=== PATIENT | female | born 1940 | race Caucasian/White ===

== ENCOUNTER 2021-06-26 10:25 | Inpatient (IN) | payer MEDICARE, SELFPAY ==
[2021-06-26] VITALS (36 sets, daily range): BP systolic 87–112; BP diastolic 60–81; PULSE 64–80; RESP 13–32; TEMP 37.3; O2SAT 91–99; BMI 22.6
--- NOTE | 2021-06-26 10:37 | ECG_ITS ---
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 Measurements Intervals [place] Rate: 92 P: 64 PA: 172 QRS: -24 QRSD: 82 T: 225 QT: 420 QTc: 522 Interpretive Statements SINUS RHYTHM BORDERLINE LEFT AXIS DEVIATION [QRS AXIS < -20] MODERATE T-WAVE ABNORMALITY, CONSIDER LATERAL ISCHEMIA [-0.1+ mV T WAVE IN I/aVL/V5/V6] MODERATE T-WAVE ABNORMALITY, CONSIDER INFERIOR ISCHEMIA [-0.1+ mV T WAVE IN II/aVF] No previous ECG available for comparison Electronically Signed On 06-30-2021 0:22:12 CDT by Ailyn Andre M.D. [id number] f
--- NOTE | 2021-06-26 10:37 | XR_ITS ---
WS: [id number] XR chest 1V portable [id number] REASON FOR EXAM: Cough FINDINGS: Calcification in the aortic arch. No significant tortuosity or dilatation. The heart size is normal. Calcified granulomatous changes in both hemithoraces. No acute pulmonary parenchymal or pleural finding. Moderate changes of degenerative spondylosis in the lower thoracic spine and at the thoracolumbar radha ction. XR/XR chest 1V portable [id number] IMPRESSION: No acute abnormality.
--- NOTE | 2021-06-26 10:39 | W.ED.CHESTPA ---
Documented by User: LUIS Kaur 06/26/21 12:17 HPI - Chest Pain General: Chief Complaint: Chest Pain Stated Complaint: CP Time Seen by Provider: 06/26/21 10:39 Source: patient and family Mode of arrival: wheelchair Limitations: no limitations History of Present Illness: HPI narrative: Patient is a pleasant 80-year-old female who presents to ED today along with her daughter for complaints of an episode of chest pain that began yesterday evening while push mowing her yard. She states she began feeling pain substernally. She states she quit mowing and went inside to rest. Chest pain did slightly improve with rest. She tells me she was able to sleep although reportedly tossed and turned throughout the night. She states this morning chest pain continued so her daughter recommended she come to the ED for evaluation. Patient has no cardiac history. She does have a history of hypertension and is an every day smoker. MD complaint: chest pain Onset (ago): day(s) (yesterday) Timing of current episode: constant Prior episodes: No Onset: during exertion Pain location: substernal Pain radiation: back Severity: moderate Quality: tightness and heaviness Associated symptoms: Deny abdominal pain, diaphoresis, dyspnea, fever(s), nausea, palpitations, syncope or vomiting Treatment prior to arrival: none Risk Factors: Coronary artery disease risk factors: smoking history and hypertension Review of Systems Const: Denies: fever(s), chills, body aches, change in appetite, change in weight, night sweats or diaphoresis Card: Reports: chest pain; Denies: palpitations, irregular heart rhythm, edema, swelling of feet/ankles, lightheadedness, syncope, pre-syncope, dyspnea on exertion, orthopnea, leg pain with exertion or acrocyanosis Resp: Denies: dyspnea, productive cough, non-productive cough, pain on inspiration, hemoptysis or chest congestion GI: Denies: abdominal pain, nausea, vomiting or diarrhea Musc: Denies: neck pain or back pain Skin/Breast: Denies: rash Neuro: Reports: other (reports weakness); Denies: headache(s) Physical Exam Const: COMMON NORMALS: average body habitus, patient oriented x3, no limitations, healthy appearing, alert and well nourished GENERAL APPEARANCE: in distress (reporting chest pain) ORIENTATION/CONSCIOUSNESS: Yes awake, Yes oriented to person, Yes oriented to place and Yes oriented to time HENMT: COMMON NORMALS: normocephalic and atraumatic HEAD & SCALP: normocephalic and atraumatic Resp: COMMON NORMALS: normal respiratory effort and clear to auscultation bilaterally AUSCULTATION: clear to auscultation bilaterally Cardio: COMMON NORMALS: regular rate and regular rhythm RATE: regular rate RHYTHM: regular rhythm GI: COMMON NORMALS: Normal to inspection, nondistended, normoactive bowel sounds present, Soft to palpation, non-tender, No hepatosplenomegaly present and no masses PALPATION: Yes Soft to palpation and Yes No hepatosplenomegaly present Extremity: COMMON NORMALS: capillary refill normal, no clubbing, cyanosis or edema, no calf tenderness and no pedal edema Neuro: COMMON NORMALS: patient oriented x3 SENSORIUM/ORIENTATION: Yes alert, Yes oriented to person, Yes oriented to place and Yes oriented to time Skin: COMMON NORMALS: no rashes or lesions noted GENERAL SKIN EXAM: no rashes or lesions noted Course Consultations: Consultation #1: Dr. Andre-patient agrees with management here in ED; recommend admit and she will consult Vital Signs: Vital signs: Vital Signs Temperature 99.2 F 06/26/21 11:04 Pulse Rate 77 06/26/21 11:04 Respiratory Rate 16 06/26/21 11:04 Blood Pressure 104/62 06/26/21 11:04 Pulse Oximetry 97 06/26/21 11:16 MDM - Chest Pain MDM Narrative: Medical decision making narrative: Initial EKG shows inverted T waves to her inferior lateral leads. EKG was immediately reviewed with Dr. Chacon. No previous EKGs available for comparison. Patient's baseline troponin elevated at 306. She does have an elevated BNP at 7584. She clinically does not appear fluid overloaded. CXR is normal. Patient was started on aspirin, nitro, Lovenox, morphine, and Plavix. I consulted with cardiology Dr. Andre who agrees with management and recommend admit and she will consult. Dr. Chacon has also seen patient and spoke to hospitalist for admission. Lab Data: Labs: Lab Results 06/26/21 06/26/21 06/26/21 Range/Units 10:52 10:52 10:52 WBC 13.8 H (4.0-10.0) 10^3/ uL RBC 4.21 (4.1-5.3) 10^6/u L Hgb 11.4 L (11.5-15.3) g/dL Hct 36.0 L (37.0-47.0) % MCV 85.5 (81-99) fL MCH 27.1 L (28.0-34.0) pg MCHC 31.7 (30.0-36.0) g/dL RDW 16.0 H (12.1-15.1) % Plt Count 301 (130-400) 10^3/c mm MPV 10.9 H (7.4-10.4) fL Neut % (Auto) 83.3 % Lymph % (Auto) 10.1 % Frontier % (Auto) 5.7 % Eos % (Auto) 0.1 % Baso % (Auto) 0.3 % Neut # (Auto) 11.49 H (1.8-7.7) 10^3/u L Lymph # (Auto) 1.4 (0.8-4.8) 10^3/u L Frontier # (Auto) 0.8 (0.2-0.9) 10^3/u L Eos # (Auto) 0.0 (0.0-0.8) 10^3/u L Baso # (Auto) 0.0 (0.0-0.1) 10^3/u L Nucleated RBC % (a uto) 0 % Nucleated RBCs # 0.0 /100WBC PT 13.00 (12.1-14.9) SECO NDS INR 0.95 (0.8-1.2) APTT 32.3 (23.9-36.7) SECO NDS Sodium 131 L (136-145) mmol/L Potassium 4.4 (3.5-5.1) mmol/L Chloride 95 L (98-107) mmol/L Carbon Dioxide 23 (22-29) mmol/L Anion Gap 17.4 (5-19) BUN 8 (8-23) mg/dL Creatinine 0.6 (0.5-0.9) mg/dL GFR Calculation Not Reportable Glucose 130 H (65-115) mg/dL Calculated Osmolal ity 272 L (285-295) mOsm/k g Calcium 8.4 L (8.5-10.5) mg/dL Total Bilirubin 0.5 (0.15-1.2) mg/dL AST 39 H (0-32) U/L ALT 22 (0-33) U/L Alkaline Phosphata se 132 H (35-105) IU/L Troponin T Baselin e (0-10) ng/L NT-Pro-B Natriuret Pep 7584 H (0-450) pg/mL Total Protein 6.4 L (6.6-8.7) g/dL Albumin 3.8 (3.5-5.2) g/dL Globulin 2.6 (1.3-4.6) g/dL 06/26/21 Range/Units 10:52 WBC (4.0-10.0) 10^3/ uL RBC (4.1-5.3) 10^6/u L Hgb (11.5-15.3) g/dL Hct (37.0-47.0) % MCV (81-99) fL MCH (28.0-34.0) pg MCHC (30.0-36.0) g/dL RDW (12.1-15.1) % Plt Count (130-400) 10^3/c mm MPV (7.4-10.4) fL Neut % (Auto) % Lymph % (Auto) % Frontier % (Auto) % Eos % (Auto) % Baso % (Auto) % Neut # (Auto) (1.8-7.7) 10^3/u L Lymph # (Auto) (0.8-4.8) 10^3/u L Frontier # (Auto) (0.2-0.9) 10^3/u L Eos # (Auto) (0.0-0.8) 10^3/u L Baso # (Auto) (0.0-0.1) 10^3/u L Nucleated RBC % (a uto) % Nucleated RBCs # /100WBC PT (12.1-14.9) SECO NDS INR (0.8-1.2) APTT (23.9-36.7) SECO NDS Sodium (136-145) mmol/L Potassium (3.5-5.1) mmol/L Chloride (98-107) mmol/L Carbon Dioxide (22-29) mmol/L Anion Gap (5-19) BUN (8-23) mg/dL Creatinine (0.5-0.9) mg/dL GFR Calculation Glucose (65-115) mg/dL Calculated Osmolal ity (285-295) mOsm/k g Calcium (8.5-10.5) mg/dL Total Bilirubin (0.15-1.2) mg/dL AST (0-32) U/L ALT (0-33) U/L Alkaline Phosphata se (35-105) IU/L Troponin T Baselin e 306 H* (0-10) ng/L NT-Pro-B Natriuret Pep (0-450) pg/mL Total Protein (6.6-8.7) g/dL Albumin (3.5-5.2) g/dL Globulin (1.3-4.6) g/dL EKG Data^: EKG 1: EKG interpretation date: 06/26/21 EKG interpretation time: 10:34 Interpretation: Sinus rhythm Rate 92 T wave inversion in inferiolateral leads concerning for possible ischemia No STEMI No EKG available for comparison Reviewed along with Dr. Chacon Discharge Plan Discharge Patient Disposition: Admitted As Inpatient Clinical Impression: Non-ST elevated myocardial infarction (non-STEMI), Chest pain, Elevated troponin, Cigarette smoker Condition: Stable Coding Level of Care Code ED Inside Sales Advertising Executive for Chg Fwd Exam Detailed Documented by User: Joaquin Chacon MD 06/26/21 12:06 HPI - Chest Pain General: Chief Complaint: Chest Pain Stated Complaint: CP Time Seen by Provider: 06/26/21 10:39 Course ED course: I discussed at length with patient and family about findings. They are agreeable with mission to the hospital. Consultations: Consultation #1: Patient appears to be having a non-STEMI. Continue to be in chest pain has received morphine nitro aspirin Plavix and Lovenox. Dr. Sullivan cardiology will see patient as a consult. Patient be admitted to the hospitalist service Time: 12:05 Vital Signs: Vital signs: Vital Signs Temperature 99.2 F 06/26/21 11:04 Pulse Rate 77 06/26/21 11:04 Respiratory Rate 16 06/26/21 11:04 Blood Pressure 104/62 06/26/21 11:04 Pulse Oximetry 97 06/26/21 11:16 MDM - Chest Pain MDM Narrative: Medical decision making narrative: Patient appears to be having a non-STEMI. Continue to be in chest pain has received morphine nitro aspirin Plavix and Lovenox. Dr. Sullivan cardiology will see patient as a consult. Patient be admitted to the hospitalist service Lab Data: Labs: Lab Results 06/26/21 06/26/21 06/26/21 Range/Units 10:52 10:52 10:52 WBC 13.8 H (4.0-10.0) 10^3/ uL RBC 4.21 (4.1-5.3) 10^6/u L Hgb 11.4 L (11.5-15.3) g/dL Hct 36.0 L (37.0-47.0) % MCV 85.5 (81-99) fL MCH 27.1 L (28.0-34.0) pg MCHC 31.7 (30.0-36.0) g/dL RDW 16.0 H (12.1-15.1) % Plt Count 301 (130-400) 10^3/c mm MPV 10.9 H (7.4-10.4) fL Neut % (Auto) 83.3 % Lymph % (Auto) 10.1 % Frontier % (Auto) 5.7 % Eos % (Auto) 0.1 % Baso % (Auto) 0.3 % Neut # (Auto) 11.49 H (1.8-7.7) 10^3/u L Lymph # (Auto) 1.4 (0.8-4.8) 10^3/u L Frontier # (Auto) 0.8 (0.2-0.9) 10^3/u L Eos # (Auto) 0.0 (0.0-0.8) 10^3/u L Baso # (Auto) 0.0 (0.0-0.1) 10^3/u L Nucleated RBC % (a uto) 0 % Nucleated RBCs # 0.0 /100WBC PT 13.00 (12.1-14.9) SECO NDS INR 0.95 (0.8-1.2) APTT 32.3 (23.9-36.7) SECO NDS Sodium 131 L (136-145) mmol/L Potassium 4.4 (3.5-5.1) mmol/L Chloride 95 L (98-107) mmol/L Carbon Dioxide 23 (22-29) mmol/L Anion Gap 17.4 (5-19) BUN 8 (8-23) mg/dL Creatinine 0.6 (0.5-0.9) mg/dL GFR Calculation Not Reportable Glucose 130 H (65-115) mg/dL Calculated Osmolal ity 272 L (285-295) mOsm/k g Calcium 8.4 L (8.5-10.5) mg/dL Total Bilirubin 0.5 (0.15-1.2) mg/dL AST 39 H (0-32) U/L ALT 22 (0-33) U/L Alkaline Phosphata se 132 H (35-105) IU/L Troponin T Baselin e (0-10) ng/L NT-Pro-B Natriuret Pep 7584 H (0-450) pg/mL Total Protein 6.4 L (6.6-8.7) g/dL Albumin 3.8 (3.5-5.2) g/dL Globulin 2.6 (1.3-4.6) g/dL 06/26/21 Range/Units 10:52 WBC (4.0-10.0) 10^3/ uL RBC (4.1-5.3) 10^6/u L Hgb (11.5-15.3) g/dL Hct (37.0-47.0) % MCV (81-99) fL MCH (28.0-34.0) pg MCHC (30.0-36.0) g/dL RDW (12.1-15.1) % Plt Count (130-400) 10^3/c mm MPV (7.4-10.4) fL Neut % (Auto) % Lymph % (Auto) % Frontier % (Auto) % Eos % (Auto) % Baso % (Auto) % Neut # (Auto) (1.8-7.7) 10^3/u L Lymph # (Auto) (0.8-4.8) 10^3/u L Frontier # (Auto) (0.2-0.9) 10^3/u L Eos # (Auto) (0.0-0.8) 10^3/u L Baso # (Auto) (0.0-0.1) 10^3/u L Nucleated RBC % (a uto) % Nucleated RBCs # /100WBC PT (12.1-14.9) SECO NDS INR (0.8-1.2) APTT (23.9-36.7) SECO NDS Sodium (136-145) mmol/L Potassium (3.5-5.1) mmol/L Chloride (98-107) mmol/L Carbon Dioxide (22-29) mmol/L Anion Gap (5-19) BUN (8-23) mg/dL Creatinine (0.5-0.9) mg/dL GFR Calculation Glucose (65-115) mg/dL Calculated Osmolal ity (285-295) mOsm/k g Calcium (8.5-10.5) mg/dL Total Bilirubin (0.15-1.2) mg/dL AST (0-32) U/L ALT (0-33) U/L Alkaline Phosphata se (35-105) IU/L Troponin T Baselin e 306 H* (0-10) ng/L NT-Pro-B Natriuret Pep (0-450) pg/mL Total Protein (6.6-8.7) g/dL Albumin (3.5-5.2) g/dL Globulin (1.3-4.6) g/dL Discharge Plan Discharge Patient Disposition: Admitted As Inpatient Clinical Impression: Non-ST elevated myocardial infarction (non-STEMI), Chest pain, Elevated troponin, Cigarette smoker Condition: Stable Coding Level of Care Code ED Inside Sales Advertising Executive for Dori Fwd Exam Detailed
[2021-06-26 11:07] LABS: Basophils % 0.3 %; Eosinophils % 0.1 %; Hemoglobin 11.4 g/dL (11.5-15.3); Lymphocytes # 1.4 10^3/uL (0.8-4.8); Lymphocytes % 10.1 %; Mean Corpuscular HGB Conc 31.7 g/dL (30.0-36.0); Mean Corpuscular Hemoglobin 27.1 pg (28.0-34.0); Mean Corpuscular Volume 85.5 fL (81-99); Mean Platelet Volume 10.9 fL (7.4-10.4); Monocytes # 0.8 10^3/uL (0.2-0.9); Monocytes % 5.7 %; Neutrophils # 11.49 10^3/uL (1.8-7.7); Neutrophils % 83.3 %; Nucleated Red Blood Cells % 0 %; Platelet Count 301 10^3/cmm (130-400); Red Blood Count 4.21 10^6/uL (4.1-5.3); White Blood Count 13.8 10^3/uL (4.0-10.0)
[2021-06-26 11:12] LABS: INR 0.95 (0.8-1.2); Partial Thromboplastin Time 32.3 SECONDS (23.9-36.7)
[2021-06-26 11:20] LABS: Alanine Aminotransferase 22 U/L (0-33); Albumin Level 3.8 g/dL (3.5-5.2); Alkaline Phosphatase 132 IU/L (35-105); Anion Gap 17.4 (5-19); Aspartate Amino Transferase 39 U/L (0-32); Blood Urea Nitrogen 8 mg/dL (8-23); Calcium 8.4 mg/dL (8.5-10.5); Carbon Dioxide 23 mmol/L (22-29); Chloride 95 mmol/L (98-107); Globulin 2.6 g/dL (1.3-4.6); Glucose 130 mg/dL (65-115); Osmolality Calculated 272 mOsm/kg (285-295); Potassium 4.4 mmol/L (3.5-5.1); Sodium 131 mmol/L (136-145); Total Bilirubin 0.5 mg/dL (0.15-1.2); Total Protein 6.4 g/dL (6.6-8.7)
[2021-06-26 11:28] LABS: Troponin(5th) Baseline 306 ng/L (0-10)
[2021-06-26] MEDS: clopidogrel 300 mg Tablet PO (11:52)
[2021-06-26] MEDS: aspirin 81 mg Chew Tablet 324 MG PO (11:53)
[2021-06-26] MEDS: nitroglycerin 1 gm/inch oint Pkt 1 INCH TOPICAL (11:54)
[2021-06-26 11:57] LABS: NT Pro B Type Natriuretic Pept 7584 pg/mL (0-450)
[2021-06-26] MEDS: morphine 4 mg/mL SDV 1 mL 2 MG IVP (12:00)
[2021-06-26 12:31] LABS: Add Urine Microscopic? NO; Charge for UA Resulting for Rev
--- NOTE | 2021-06-26 12:37 | ECG_ITS ---
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 Measurements Intervals [place] Rate: 79 P: 47 SD: 173 QRS: -9 QRSD: 81 T: 222 QT: 472 QTc: 543 Interpretive Statements SINUS RHYTHM WITH FREQUENT SUPRAVENTRICULAR PREMATURE COMPLEXES POSSIBLE RIGHT VENTRICULAR CONDUCTION DELAY [RSR (QR) IN V1/V2] MARKED T-WAVE ABNORMALITY, CONSIDER LATERAL ISCHEMIA [-0.5+ mV T WAVE IN I/aVL/V5/V6] MODERATE T-WAVE ABNORMALITY, CONSIDER INFERIOR ISCHEMIA [-0.1+ mV T WAVE IN II/aVF] Compared to ECG 06/26/2021 10:34:33 No significant changes Electronically Signed On 06-26-2021 14:47:22 CDT by Alva Maldonado M.D. [id number] f
[2021-06-26 12:41] LABS: Bilirubin Urine Neg (Negative); Blood Urine Neg (Negative); Glucose Urine UA Norm (Normal); Ketones Urine Negative (Negative); Leukocyte Esterase Urine Negative (Negative); Nitrate Urine Negative (Negative); Protein Urine Neg (Negative); Specific Gravity, Urine 1.005 (1.005-1.030); Urine Appearance Clear (CLEAR); Urine Color Yellow (Yellow); Urobilinogen Urine Norm (Negative); pH Urine 6.5 (5-7)
[2021-06-26] MEDS: enoxaparin 60 mg/0.6 mL Syringe 50 MG SUBCUT (13:07)
[2021-06-26 13:38] LABS: Troponin 5 2HR 268.2 ng/L (0-10); Troponin 5 2HR Delta -37.8 ABS# (0-10)
--- NOTE | 2021-06-26 13:41 | PC.NURSE ---
PATIENT STATES PAIN IS RADIATING MORE DOWN HER LEFT ARM. RATES ARM PAIN 8/10. PATIENT'S CHEST PAIN HURTS WHEN SHE TAKES DEEP BREATHS OR SITS IN HIGH FOWLERS. PATIENT RATES PAIN 8/10 DURING THOSE MOVEMENTS AND A 5/10 AT REST.
--- NOTE | 2021-06-26 13:45 | USCV_ITS ---
Nidia Jin Age: 80 Gender: F : 1940 Exam Date: 06/26/2021 14:34 Ordering Phys: Ailyn Andre MD ([email or web address]) Technologist: Christian Pierre Exam [place] [facility] [place] [facility] [place]ication: NSTEMI BP: 113 / 79 HR: 81 Rhythm: Sinus Technical Quality: Adequate MEASUREMENTS (Male / Female) Normal Values 2D ECHO LV Diastolic Diameter PLAX 3.8 cm 4.2 - 5.9 / 3.9 - 5.3 cm LV Systolic Diameter PLAX 3.2 cm IVS Diastolic Thickness 0.8 cm 0.6 - 1.0 / 0.6 - 0.9 cm IVS Systolic Thickness 1.1 cm LVPW Diastolic Thickness 0.9 cm 0.6 - 1.0 / 0.6 - 0.9 cm LVPW Systolic Thickness 0.9 cm LVOT Diameter 2.0 cm LV Ejection Fraction 2D Teich 32.1 % LV Ejection Fraction MOD 2C 32.9 % LV Ejection Fraction 2C AL 31.8 % LA Diameter 2.9 cm LA Width 3.6 cm LA Height 3.8 cm RA Width 3.6 cm RA Height 4.4 cm M-MODE MV E Point Septal Separation 1.0 cm DOPPLER AV Peak Velocity 134.0 cm/s LVOT Peak Velocity 76.0 cm/s AV Area Cont Eq vti 2.0 cm squared AV Area Cont Eq pk 1.9 cm squared MV Area PHT 5.0 cm squared Mitral E to A Ratio 0.8 MV E' Velocity 36.5 cm/s Mitral E to MV E' Ratio 8.9 Mitral E to LV E' Lateral Ratio 10.4 Mitral E to LV E' Septal Ratio 7.7 TR Peak Velocity 275.3 cm/s TR Peak Gradient 30.3 mmHg TV Peak E Velocity 102.0 cm/s Right Atrial Pressure 3.0 mmHg Pulmonary Artery Systolic Pressu 33.3 mmHg PV Peak Velocity 79.0 cm/s FINDINGS Left Ventricle Normal left ventricular cavity size. Moderately decreased left ventricular systolic function. Left ventricular ejection fraction is estimated at 30-35%. There is severe hypokinesis of mid inferoseptal, mid to apical anteroseptal, mid to apical anterior, mid to apical anterolateral, mid inferolateral and all apical guo. Normal diastolic function. Right Ventricle Normal right ventricular size and systolic function. Right ventricular systolic pressure 35 mmHg. Right Atrium Normal right atrial size. Right atrial pressure estimated at 3 mmHg. Left Atrium Left atrium not well visualized. Probably normal left atrial size. Mitral Valve Mildly thickened mitral valve. No mitral valve stenosis. Trace mitral valve regurgitation. Aortic Valve Aortic valve not well visualized. No aortic valve stenosis. Trace aortic valve regurgitation. Tricuspid Valve Tricuspid valve not well visualized. Mild to moderate tricuspid valve regurgitation. Pulmonic Valve Pulmonic valve not well visualized. Trace pulmonary valve regurgitation. Pericardium No pericardial effusion. Aorta Normal size aortic root and proximal ascending aorta. CONCLUSIONS 1. Normal left ventricular cavity size. Moderately decreased left ventricular systolic function. Left ventricular ejection fraction is estimated at 30-35 %. There is severe hypokinesis of mid inferoseptal, mid to apical anteroseptal, mid to apical anterior, mid to apical anterolateral, mid inferolateral and all apical guo. 2. Normal right ventricular size and systolic function. 3. Pulmonary artery pressure estimated at 35 mmHg. 4. Mild to moderate tricuspid valve regurgitation. 5. These findings may represent multivessel coronary artery disease or Takotsubo cardiomyopathy if coronary artery disease is ruled out. 6. No prior similar studies to compare. Ailyn Andre MD (Electronically Signed) Final Date: 26 June 2021 15:46 Amended: 26 June 2021 20:33 C
[2021-06-26] MEDS: sodium chloride 0.9% 500 ML 999 ML IV (14:13)
[2021-06-26] MEDS: nitroglycerin 0.4 mg sublingual Tablet SUBLINGUAL (14:41)
--- NOTE | 2021-06-26 15:05 | P.CONIM_ITS ---
Providers/Reason For Consult Consulting Physician/Specialty*: Dr. Andre Reason for Consult*: NSTEMI History of Present Illness History of Present Illness Nidia Jin is a 80 year old female with PMHx of HTN, family h/o CAD and chronic active smoker (40 PKY at least) presented with chest pain. Yesterday, while pushing a push mower he felt tired and overnight had somne mild chest discomfort. This morning he developed pressure like chest pain in left upper chest with radiation to upper shoulder and back with some pleuritic component to the pain. She also metions that bending forward makes her pain worse somewhat. troponin >300 and EKG on arrival showed sinus rhythm with occasional PVC. Deep T wave inversion in inferolateral leads. I have been asked to assist in further management. She got vaccinated with J&J vaccine on 05/05/2021 and denies any sick contacts including COVID-19. No URI or UTI like symptoms. No similar symptoms in past. Review of Systems Const: Denies: fever(s), chills, body aches, change in appetite, change in weight, night sweats or diaphoresis Eyes: Denies: change in vision Card: Reports: chest pain; Denies: palpitations, irregular heart rhythm, edema, swelling of feet/ankles, lightheadedness, syncope, pre-syncope, dyspnea on exertion, orthopnea, leg pain with exertion or acrocyanosis Resp: Denies: dyspnea, productive cough, non-productive cough, pain on inspiration, hemoptysis or chest congestion GI: Denies: abdominal pain, nausea, vomiting, diarrhea, hematochezia or melena : Denies: hematuria Musc: Denies: neck pain or back pain Skin/Breast: Denies: rash Neuro: Reports: other (reports weakness); Denies: headache(s) Psych: Denies: anxiety or depression Joni/Lymph: Denies: petechiae or purpura Meds/Allergies Home Medications and Allergies Home Medications Medication Instructions Recorded Confirmed Last Taken Type aspirin [Aspir-81] 81 mg PO BEDTIME 06/26/21 06/26/21 06/25/21 History atorvastatin 10 mg PO QAM 06/26/21 06/26/21 06/26/21 08:30 History lisinopril 10 mg PO QAM 06/26/21 06/26/21 06/26/21 08:30 History vit C,L-My-xxbfw-lutein-zeaxan 2 cap PO BEDTIME 06/26/21 06/26/21 06/25/21 History [PreserVision AREDS-2] Allergies Allergy/AdvReac Type Severity Reaction Status Date / Time No Known Allergies Allergy Verified 06/26/21 11:17 PFSH Acute PFSH: Medical History (Updated 06/26/21 @ 15:51 by Ailyn Andre MD) Family history of ischemic heart disease and other diseases of the circulatory system HTN (hypertension) Social History (Updated 06/26/21 @ 15:50 by Ailyn Andre MD) Smoking and tobacco status: current every day smoker cigarettes Packs smoked per day: 1 Years cigarettes smoked: 40 Vitals/I&O/Wt Last Vital Signs Temp 99.2 F 06/26/21 11:04 Pulse 80 06/26/21 15:00 Resp 32 H 06/26/21 15:00 BP 109/75 06/26/21 15:00 Pulse Ox 97 06/26/21 15:00 Weight last 48 hrs Weight 120 lb Physical Exam Narrative: EXAM NARRATIVE: Gen: laying in bed in painful distress HEENT/Neck: No JVD, PEERL RS: CTAB/L, prolonged expiration. No wheezing or rales. CVS: S1, S2 regular, No murmur, rub or gallop [employer]AT[employer] DRIVER: AAOx3, No FND Ext: No edema, cyanosis or clubbing. Skin: No rash or open wounds A&P Assessment and plan (1) Non-ST elevated myocardial infarction (non-STEMI): LVEF=35% with mid to apical wall motion abnormalities in multivessel territory. Diffrentials being multivessel CAD vs takotsubo cardiomyopathy -BP soft and ongoing chest pain. -Plan for cath with Dr. Cordon later this afternoon. -received ASA 324 mg, plavix 300 mg POx 1 and lovenox. -add another 300 mg of plavix. Risks and benefits were discussed with the patients. Alternate management options were discussed with the patient as well. Possible complications were reviewed with the patient and her daughter as well. Status: Acute (2) HTN (hypertension): Status: Acute Qualifiers: Hypertension type: essential hypertension Qualified Code(s): I10 - Essential (primary) hypertension (3) Family history of ischemic heart disease and other diseases of the circulatory system: Status: Acute (4) Cigarette smoker: Status: Acute Additional A&P Information Leucocytosis Abnormal liver enzymes Thank you for allowing me to participate in patient's care. Please feel free to call with questions or concerns. Consult Attestations Medical Necessity Statement: She will probably need more than 2 midnight stay in the hospital for NSTEMI Time Spent in Patient Care: Greater than 35 minutes (>than 50% of time spent in counselling and/or direct pt care on unit) . Critical Care Time: The high probability of a clinically significant, sudden or life threatening deterioration of the patient's [cardiovascular] system(s) required my full and direct attention, intervention and personal management. The critical care time is as shown. This time is in addition to time spent performing any reported procedures but includes the following: [x] Data and vital sign review and interpretation [x] Patient assessment, examination and intervention [x] Documentation [x] Medication orders and management Critical Care Time (min): 45 Coding Level of Care Code Acute Information Systems Project Manager for Dori Enriquez Diagnoses Non-ST elevated myocardial infarction (non-STEMI) I21.4 HTN (hypertension) I10 Hypertension type: essential hypertension Family history of ischemic heart disease and other diseases of the circulatory system Z82.49 Cigarette smoker F17.210
--- NOTE | 2021-06-26 15:13 | XACV_ITS ---
Ht: 155 cm Wt: 54 kg BSA: 1.54 m2 Gender: Female : 1940 Any Known Allergies: No known allergies Exam Priority: Routine Procedure(s): Procedure Description: Diagnostic procedure Procedure Description: Left Heart Catheterization Procedure Description: Left ventriculography Procedure Description: Coronary Angiography Diagnostic Cath Status: Urgent Diagnostic Findings * Left Main has no disease. * Circumflex has no disease. * Proximal Left Anterior Descending to Mid Left Anterior Descending: moderate 50% stenosis, SAKSHI: 3 flow. * Mid Right Coronary Artery: luminal irregularities 20% stenosis, SAKSHI: 3 flow. * 1st Diagonal: mild 40% stenosis, SAKSHI: 3 flow. * Coronary angiography shows right dominance. Conclusions 1. There is moderate coronary artery disease with two vessel disease. 2. The apex, mid posterior, mid septum, anterolateral, mid inferior guo are hypokinetic. 3. All other visualized guo normal. 4. Moderate left ventricular systolic dysfunction. Ejection fraction of 35%. Recommendations * Continue current medical management and risk factor modification. Diagnostic RX Recommendation: medical therapy and/or counseling LV EDP: 8 mmHg Ventriculography Ejection Fraction: 35.0 % Left Ventriculography Findings: * Severely depressed LV function 35%. Pressures Phase:Rest AO : 134 / 57 ( 57 ) @ 4:07:00 PM 47 / 34 ( 27 ) @ 4:10:00 PM LV : 108 / -7 / 8 @ 4:06:00 PM 285 / 46 / 273 @ 4:16:00 PM 103 / -1 / 13 @ 4:17:00 PM 107 / 1 / 15 @ 4:18:00 PM Clinical Evaluation EBL: 5mL-10mL Procedural Details Procedure Consent Obtained. Pre-Procedure Time Out. Identified patient by full name and date of as verbalized by the patient/guarantor. Does the consent match the physician's order: Yes. Accurate & Complete Informed Consent: Yes. Inpatient/Outpatient History & Physical on Chart: Yes. If H&P is completed, is and addenduem needed: N/A; If yes, is the addendum complete: N/A. Visualize and Verify Site with Patient/Guarantor: N/A. Relevant Radiology Images available: Yes. Pre-op teaching completed and patient verbalized understanding. The risks, benefits, and alternatives of sedation and/or procedure were discussed by physician. The patient agrees to continue. Procedure started. Correct patient, site and procedure confirmed by cath team. Current diagnosis: NSTEMI. PERRLA. Strong, equal hand diesel power mechanic bilaterally. Lungs clear x 5 lobes. IV Fluids: 0.9% NaCl at KVO. 0 mL infused prior to vp lab. Oxygen started at 2liters/min via nasal canula. right groin was prepped with chloroprep then draped in the usual sterile fashion. right radial was prepped with chloroprep then draped in the usual sterile fashion. Baseline sample Acquired. HR: 84 BPM. Physician notified. Equipment: 6F - Radial. Cardiac Cath Pack. ACIST Manifold Kit Model BT 2000. Heparinized Saline (2 units/mL), 1000 mL bag. Physician arrived. Inventory is [employer] XT .[address] Guidewire. Physician scrubbed in. Immediate Pre-Procedure Time Out. Correct Patient: Yes; Correct Procedure: Yes; Correct Site: Yes; Correct Patient Position: Yes; Correct Supplies: Yes; Dried Flammable Prep: Yes; Blood Products Available: No;. Lidocaine 1% infiltrated to the right radial. Arterial access obtained. A 5 welsh TIG catheter in over wire. EDP Sample taken: LV 108/-8,8; HR: 82 BPM; SpO2: 93%. Multiple views taken of left coronary artery. Catheter redirected to the RCA. Multiple views taken of right coronary artery. Catheter out. A 5 welsh Angled Pig catheter in over wire. EDP Sample taken: LV 285/46,273; HR: 81 BPM; SpO2: 92%. EDP Sample taken: LV 103/-2,13; HR: 80 BPM; SpO2: Off%. LV gram performed in GORDON @ 10 mL/second for a total of 30 mL. EDP Sample taken: LV 107/1,15; HR: 84 BPM; SpO2: 91%. Pullback taken: LV Off; AO Off; Mean: , Peak to Peak: , SEP: ; HR: 84 BPM; SpO2: 91%. Catheter out. A TR Band was successful obtaining hemostatsis at the Right Radial artery insertion site. TR band placed. Hemostasis obtained. Post Procedure: Pulses reassessed and unchanged. PERRLA. Strong, equal hand diesel power mechanic bilaterally. No VTE prophylaxis required. Medication's Wasted: Heparin = 1000 units. Medication's Wasted: Lidocaine 1% = 18 mL. Medication's Wasted: Nitro = 49.8 mg. Total IV fluids: 50.8 mL. Fluoro: 4:30. Contrast type used: Visipaque 320 mgI/mL, 500 mL bottle. [id number]. Post-op diagnosis: tokatsubo. Complications: none. Estimated blood loss: 5mL-10mL. Procedure completed. Patient transferred by wheelchair to 1st floor. [facility] Clinical Fraility Score: 3: Managing Well. Ict Security Specialist Indications: ACS <= 24 hours. Chest Pain Symptom Assessment: Typical Angina Symptoms. Cardiovascular Instability: No. Access Site Site: Right Radial artery Sheath Size: 5 Fr Hemostasis Method: TR Band Hemostasis Success: Successful Procedure Medications Start: 4:50 PM Stop: 4:50 PM Medication: Fentanyl Amount: 50 mcg Route: I.V. Start: 4:51 PM Stop: 4:51 PM Medication: Versed Amount: 1 mg Route: I.V. Start: 4:51 PM Stop: 4:51 PM Medication: Fentanyl Amount: 50 mcg Route: I.V. Start: 4:55 PM Stop: 4:55 PM Medication: Versed Amount: 1 mg Route: I.V. Start: 5:04 PM Stop: 5:04 PM Medication: Nitrogylcerin Amount: 200 mcg Route: I.A. I, the attending physician, have reviewed and verified all procedure medications. Yes, all medications given per verbal order History/Risk Factors Hypertension: Yes Tobacco Use: Current/Recent(w/in 1 year) Report Signatures Finalized by Jw Cordon MD on 07/10/2021 07:50 PM
[2021-06-26] MEDS: fentaNYL 50 mcg/mL INJ 2mL IVP (15:16)
[2021-06-26 15:38] LABS: SARS Covid-2 Antigen Negative (Negative)
--- NOTE | 2021-06-26 16:37 | ECG_ITS ---
[facility] ED Test Date: 2021-06-26 Pat Name: Nidia Jin Department: Room: Gender: Female Technology Infusion Specialist: : 1940 Requested By: Joaquin Chacon Order Number: [id number] Sheila MD: Ailyn Andre M.D. Measurements Intervals [place] Rate: 80 P: 65 AL: 168 QRS: -2 QRSD: 90 T: 230 QT: 484 QTc: 561 Interpretive Statements SINUS RHYTHM WITH OCCASIONAL VENTRICULAR PREMATURE COMPLEXES POSSIBLE RIGHT VENTRICULAR CONDUCTION DELAY [RSR (QR) IN V1/V2] ST DEVIATION AND MARKED T-WAVE ABNORMALITY, CONSIDER LATERAL ISCHEMIA [-0.5+ mV T WAVE IN I/aVL/V5/V6] ST DEVIATION AND MODERATE T-WAVE ABNORMALITY, CONSIDER INFERIOR ISCHEMIA [-0.1+ mV T WAVE IN II/aVF] Compared to ECG 06/26/2021 13:25:58 Ventricular premature complex(es) now present T-wave abnormality still present Possible ischemia still present Electronically Signed On 06-30-2021 0:40:29 CDT by Ailyn Andre M.D. [id number]
--- NOTE | 2021-06-26 16:55 | W.PM.OPSUD ---
Surgery/Procedure H&P Update DATE OF PROCEDURE: June 26, 2021 DATE H&P PERFORMED: 06/26/21 H&P UPDATE INFORMATION: I have reviewed H&P completed within last 30 days, I have examined patient prior to procedure and No changes to prior documentation PREOP DIAGNOSIS: Non-ST elevation GA PATIENT REASSESSED PRIOR TO SEDATION, WITH NO CHANGE NOTED: Yes PHYSICAL EXAM: alert, oriented x 3, clear to auscultation bilaterally and regular rate & rhythm AIRWAY EVAL/ANESTHESIA PLAN: ASA II, Risks, benefits & alternatives of sedation and/or procedure discussed and Patient agrees to continue as planned
--- NOTE | 2021-06-26 18:42 | PM.HP ---
Providers/Chief Complaint Admitting Physician: Ailyn Andre MD Chief Complaint: CP History of Present Illness Nidia Jin is a 80 year old female who has multiple risk factors for coronary disease such as family history, active smoker, hypertension who presented with chief complaint of chest pain. Patient symptoms started yesterday when she was doing some work in his backyard was pushing lawnmower. This morning her chest pain got worse which she is describing as pressure-like sensation radiating towards her shoulder associated with worsening on bending forward. This prompted her visit to the ER. Diagnosis in the ER revealed NSTEMI she was started on ACS protocol considering her history cardiology was consulted who recommended angiogram. Patient was seen after her cardiac cath, cardiac cath findings consistent with Takotsubo, EF 35%, she received dye, postoperatively she developed nausea and threw up multiple times she got Zofran, before her nausea she received fentanyl, in case of worsening shortness of breath we will keep an eye if she develops firm edema which we see sometimes with iodine ventriculography can be given Lasix if needed overnight Review of Systems Const: Denies: fever(s) Eyes: Denies: change in vision ENMT: Denies: throat pain Card: Reports: chest pain and dyspnea on exertion Resp: Reports: dyspnea GI: Denies: abdominal pain : Denies: flank pain Musc: Denies: neck pain Skin/Breast: Denies: rash Neuro: Denies: headache(s) Psych: Denies: anxiety Endo: Denies: polyuria Joni/Lymph: Denies: easy bruising All/Imm: Denies: urticaria Medications/Allergies Home Medications Medication Instructions Recorded Confirmed Last Taken Type aspirin [Aspir-81] 81 mg PO BEDTIME 06/26/21 06/26/21 06/25/21 History atorvastatin 10 mg PO QAM 06/26/21 06/26/21 06/26/21 08:30 History lisinopril 10 mg PO QAM 06/26/21 06/26/21 06/26/21 08:30 History vit C,D-Gi-xysdp-lutein-zeaxan 2 cap PO BEDTIME 06/26/21 06/26/21 06/25/21 History [PreserVision AREDS-2] Allergies Allergy/AdvReac Type Severity Reaction Status Date / Time No Known Allergies Allergy Verified 06/26/21 11:17 PFSH Acute PFSH: Medical History Family history of ischemic heart disease and other diseases of the circulatory system HTN (hypertension) Surgical History (Updated 06/26/21 @ 19:19 by Jw Funk MD) No history of previous surgery Family History (Updated 06/26/21 @ 19:20 by Jw Funk MD) Brother CAD (coronary artery disease) In his 60s Social History Smoking and tobacco status: current every day smoker cigarettes Packs smoked per day: 1 Years cigarettes smoked: 40 Vitals/I&O/Wt Last Vital Signs Temp 99.2 F 06/26/21 11:04 Pulse 71 06/26/21 18:15 Resp 18 06/26/21 18:05 BP 102/65 06/26/21 18:15 Pulse Ox 99 06/26/21 18:15 Weight last 48 hrs Weight 54.431 kg Physical Exam Narrative: EXAM NARRATIVE: elderly female who appears stated age Laying in bed in distress No JVD or signs of congestive heart failure S1, S2 Bilateral lower extremity without any edema Bilateral breath sounds without audible stridor or wheezing Awake alert into x3 no focal deficit Appropriate mood and affect No signs of cellulitis or joint swelling Data : 06/26/21 10:52 06/26/21 10:52 A&P Assessment and plan (1) Non-ST elevated myocardial infarction (non-STEMI): Status: Acute (2) HTN (hypertension): Status: Acute Qualifiers: Hypertension type: essential hypertension Qualified Code(s): I10 - Essential (primary) hypertension (3) Family history of ischemic heart disease and other diseases of the circulatory system: Status: Acute (4) Cigarette smoker: Status: Acute Additional A&P Information Unstable angina/NSTEMI Plan for angiogram today ACS was started in the ER Appreciate cardiology recommendations, EF 30% with severe hypokinesia multivessel territory left ventricular systolic function. Takotsubo cardiomyopathy History of essential hypertension: Currently normotensive Active smoker: Counseled on smoking cessation Full code N.p.o. for angiogram Advance diet after procedure DVT prophylaxis: Lovenox after procedure Attestations Medical Necessity Statement*: Anticipating stay in the hospital cross more than 2 midnights Time Spent in Patient Care: 16 - 35 minutes Coding Level of Care Code Acute Wood Hacker for Chg Fwd Diagnoses Non-ST elevated myocardial infarction (non-STEMI) I21.4 HTN (hypertension) I10 Hypertension type: essential hypertension Family history of ischemic heart disease and other diseases of the circulatory system Z82.49 Cigarette smoker F17.210
[2021-06-26] MEDS: fentaNYL 50 mcg/mL INJ 2mL 25 MCG IVP (18:45)
[2021-06-26] MEDS: ondansetron 2 mg/ML SDV 2 mL 4 MG IVP (19:13)
--- NOTE | 2021-06-26 19:21 | PC.NURSE ---
Patient received from catheter builder patient reporting 6/10 chest pain with inspiration lungs are clear and diminished. Call placed to Dr humphrey for further orders; instructed to call Thai for further orders however give 2 mg morphine IVP Q4h and place nitro 1/2 q6h. Patient pressures however low was able to contact Thai and received orders not to place nitro paste due to pressures; hodl on morphine and give Fentanyl 25mcg IVP Q6H for chest pain Administered Fentanyl and patient soon became nauseous and started vomiting Dr Funk at bedside at this time verbal instructions received to give 4 mg IVP Zofran now and obtain EKG Zofran administered Patient assisted to BSC with much nausea with increased SOB and pain returning in chest upon inspiration DR humphrey at bedside with Dr Funk with verbal instructions to give Toradol 15mg IVP x1 Patient assisted back to bed reports feeling very hot and nauseous still. Bedside report given to JOVANA DOMINGUEZ who will continue cares
[2021-06-26] MEDS: ketorolac 30 mg/mL INJ 15 MG IVP (19:22)
--- NOTE | 2021-06-26 19:27 | PC.NURSE ---
Received bedside report from NAGELICA Deal. Patient c/o nausea with vomiting. Dr Funk and Dr Cordon in to see patient. Patient c/o increased chest on deep inspiration. Received verbal order from Dr Funk and Bravo for Toradol 15mg IVP one time now which has been given along with ordered Zofran. Dr Andre in to see patient at this time. Patient report mild relief of nausea. Will hold off on food for now until nausea resolves.
[2021-06-26] MEDS: LORazepam 2 mg/mL INJ 1 mL 0.5 MG IVP (21:05)
[2021-06-26] MEDS: aspirin 81 mg EC Tablet PO (21:05)
[2021-06-26] MEDS: enoxaparin 60 mg/0.6 mL Syringe SUBCUT (21:17)
--- NOTE | 2021-06-26 21:23 | PC.NURSE ---
Initiated TR band removal at 1999 removing 2ml of air every 15-20min. No s/s of bleeding or hematoma formation observed. Cover site with 2x2 and coban. Instructed patient on site care and restrictions. Patient verbalized understanding.
[2021-06-26] MEDS: ipratropium-albuterol 3 mL Neb INHALATION (22:14)
[2021-06-27] VITALS (12 sets, daily range): BP systolic 102–119; BP diastolic 69–83; PULSE 75–82; RESP 16–20; TEMP 36.3–37.1; O2SAT 92–100
[2021-06-27 02:35] LABS: Basophils % 0.2 %; Hematocrit 32.8 % (37.0-47.0); Hemoglobin 10.4 g/dL (11.5-15.3); Lymphocytes # 1.6 10^3/uL (0.8-4.8); Lymphocytes % 12.2 %; Mean Corpuscular HGB Conc 31.7 g/dL (30.0-36.0); Mean Corpuscular Hemoglobin 27.2 pg (28.0-34.0); Mean Corpuscular Volume 85.9 fL (81-99); Mean Platelet Volume 11.7 fL (7.4-10.4); Monocytes # 1.1 10^3/uL (0.2-0.9); Monocytes % 8.7 %; Neutrophils # 9.95 10^3/uL (1.8-7.7); Neutrophils % 78.5 %; Nucleated Red Blood Cells % 0 %; Platelet Count 225 10^3/cmm (130-400); Red Blood Count 3.82 10^6/uL (4.1-5.3); White Blood Count 12.7 10^3/uL (4.0-10.0)
[2021-06-27 02:42] LABS: Anion Gap 11.5 (5-19); Blood Urea Nitrogen 8 mg/dL (8-23); Calcium 7.6 mg/dL (8.5-10.5); Carbon Dioxide 24 mmol/L (22-29); Chloride 97 mmol/L (98-107); Glucose 116 mg/dL (65-115); Osmolality Calculated 265 mOsm/kg (285-295); Potassium 4.5 mmol/L (3.5-5.1); Sodium 128 mmol/L (136-145)
[2021-06-27] MEDS: lisinopril 10 mg Tablet PO (05:40)
[2021-06-27] MEDS: atorvastatin 40 mg Tablet 80 MG PO (05:40)
[2021-06-27] MEDS: metoprolol succinate ER (24 HR) 25 mg Tablet 12.5 MG PO (10:12)
[2021-06-27] MEDS: clopidogrel 75 mg Tablet PO (10:12)
--- NOTE | 2021-06-27 10:13 | PM.PN ---
Subjective Subjective: Interval history: Underwent left heart cath via right radial. No obstructive CAD Medications: Reviewed: Yes Medication Review Details: Current Medications Acetaminophen (Acetaminophen 500 Mg Tablet) 500 mg PO Q4H PRN PRN Reason: fever Al Hydrox/Mg Hydrox/Simethicone (Uqps-Ulh-Tbsytgjuc-Doe 30 Ml Udc) 30 ml PO Q15M PRN PRN Reason: INDIGESTION Albuterol/Ipratropium (Ipratropium-Albuterol 3 Ml Neb) 3 ml INHALATION Q6H PRN PRN Reason: SHORTNESS OF BREATH Last Admin: 06/26/21 22:14 Dose: 3 ml Documented by: Aspirin (Aspirin 81 Mg Ec Tablet) 81 mg PO BEDTIME [facility] Last Admin: 06/26/21 21:05 Dose: 81 mg Documented by: Atorvastatin Calcium (Atorvastatin 40 Mg Tablet) 80 mg PO QAM [facility] Last Admin: 06/27/21 05:40 Dose: 80 mg Documented by: Atropine Sulfate (Atropine 1 Mg/Ml Sdv 1 Ml) 0.5 mg IVP PRN PRN PRN Reason: Symptomatic bradycardia Clopidogrel Bisulfate (Clopidogrel 75 Mg Tablet) 75 mg PO DAILY [facility] Last Admin: 06/27/21 10:12 Dose: 75 mg Documented by: Enoxaparin Sodium (Enoxaparin 60 Mg/0.6 Ml Syringe) 60 mg SUBCUT Q12H [facility] Last Admin: 06/27/21 10:13 Dose: Not Given Documented by: Fentanyl (Fentanyl 50 Mcg/Ml Inj 2ml) 50 mcg IVP PRN PRN PRN Reason: Prior to sheath removal Fentanyl (Fentanyl 50 Mcg/Ml Inj 2ml) 25 mcg IVP Q6H PRN PRN Reason: SEVERE PAIN Last Admin: 06/26/21 18:45 Dose: 25 mcg Documented by: Sodium Chloride (Sodium Chloride 0.9%) 1,000 mls @ 50 mls/hr IV .Q20H ONE Stop: 06/27/21 11:12 Last Admin: 06/26/21 21:58 Dose: Not Given Documented by: Lisinopril (Lisinopril 10 Mg Tablet) 10 mg PO QAM [facility] Last Admin: 06/27/21 05:40 Dose: 10 mg Documented by: Lorazepam (Lorazepam 2 Mg/Ml Inj 1 Ml) 0.5 mg IVP Q12H PRN PRN Reason: ANXIETY Last Admin: 06/26/21 21:05 Dose: 0.5 mg Documented by: Magnesium Hydroxide (Magnesium Hydroxide 30 Ml Udc) 30 ml PO DAILY PRN PRN Reason: CONSTIPATION Metoprolol Succinate (Metoprolol Succinate Er (24 Hr) 25 Mg Tablet) 12.5 mg PO DAILY [facility] Last Admin: 06/27/21 10:12 Dose: 12.5 mg Documented by: Morphine Sulfate (Morphine 4 Mg/Ml Sdv 1 Ml) 2 mg IVP Q4H PRN PRN Reason: SEVERE PAIN Naloxone HCl (Naloxone 0.4 Mg/Ml Sdv) 0.1 mg IVP Q2M PRN PRN Reason: RESPIRATORY RATE < 8/MIN Nitroglycerin (Nitroglycerin 0.4 Mg Sublingual Tablet) 0.4 mg SUBLINGUAL Q5M PRN PRN Reason: CHEST PAIN Nitroglycerin (Nitroglycerin 1 Gm/Inch Oint Pkt) 0.5 inch TOPICAL Q6H [facility] Last Admin: 06/26/21 18:45 Dose: Not Given Documented by: Vitals/I&O/Wt Last Vital Signs Temp 97.4 F L 06/27/21 07:29 Pulse 80 06/27/21 07:46 Resp 20 H 06/27/21 07:46 BP 107/74 06/27/21 07:29 Pulse Ox 94 06/27/21 07:46 06/26/21 06/27/21 06/27/21 22:59 06:59 14:59 Intake Total 620 / 620 Balance 620 / 620 Weight last 48 hrs Weight 120 lb Physical Exam Narrative: EXAM NARRATIVE: Gen: sitting in bed, NAD HEENT/Neck: No JVD, PEERL RS: CTAB/L, prolonged expiration. No wheezing or rales. CVS: S1, S2 regular, No murmur, rub or gallop TRAFFIC II MANAGER: AAOx3, No FND Ext: No edema, cyanosis or clubbing. No significant bruising or hematoma. Skin: No rash or open wounds Data : 06/27/21 02:00 06/27/21 02:00 A&P Assessment and plan (1) Non-ST elevated myocardial infarction (non-STEMI): LVEF=35% with mid to apical wall motion abnormalities in multivessel territory. Diffrentials being multivessel CAD vs takotsubo cardiomyopathy -BP soft and ongoing chest pain. -continue ASA and plavix for now. continue statin. Status: Acute (2) Takotsubo cardiomyopathy: LVEF=35%. -start on lasix low dose, metoprolol. -decrease lisinopril to 5 mg daily. -may need to repeat dose of lasix Status: Acute (3) HTN (hypertension): Status: Acute Qualifiers: Hypertension type: essential hypertension Qualified Code(s): I10 - Essential (primary) hypertension (4) Family history of ischemic heart disease and other diseases of the circulatory system: Status: Acute (5) Cigarette smoker: Status: Acute Additional A&P Information Leucocytosis Abnormal liver enzymes Hyponatremia Thank you for allowing me to participate in patient's care. Please feel free to call with questions or concerns. Attestations Medical Necessity Statement*: needs hospital stay for med optimization for CHF. Time Spent in Patient Care: 16 - 35 minutes Coding Level of Care Code Acute Breakdown Person for [facility] Fwd Diagnoses Non-ST elevated myocardial infarction (non-STEMI) I21.4 Takotsubo cardiomyopathy I51.81 HTN (hypertension) I10 Hypertension type: essential hypertension Family history of ischemic heart disease and other diseases of the circulatory system Z82.49 Cigarette smoker F17.210
--- NOTE | 2021-06-27 10:42 | P.PN_ITS ---
Subjective Subjective: Interval history: Patient developed nausea and vomiting yesterday after Inpatient Pharmacist which was deemed secondary to the contrast she received during the procedure. Overnight she received 1 dose of Zofran and her symptoms subsided. She still complaining of reproducible left-sided chest discomfort. She is endorsing feeling sick to her stomach this morning and experienced 1 ep isode of emesis She was given Lasix 20 mg, needing optimization for CHF will need 1 more day in the hospital Vitals/I&O/Wt Last Vital Signs Temp 97.4 F L 06/27/21 07:29 Pulse 80 06/27/21 07:46 Resp 20 H 06/27/21 07:46 BP 107/74 06/27/21 07:29 Pulse Ox 94 06/27/21 07:46 06/26/21 06/27/21 06/27/21 22:59 06:59 14:59 Intake Total 620 / 620 Balance 620 / 620 Weight last 48 hrs Weight 54.431 kg Physical Exam Narrative: EXAM NARRATIVE: elderly female was sitting at the bedside Was complaining of sickness to her stomach Saturating well on room air Blood pressure soft Clinically does not look fluid overloaded Reproducible chest pain No audible stridor or wheezing EOMI, PERRLA No strokelike symptoms Data : 06/27/21 02:00 06/27/21 02:00 A&P Assessment and plan (1) Takotsubo cardiomyopathy: Status: Acute (2) HTN (hypertension): Status: Acute Qualifiers: Hypertension type: essential hypertension Qualified Code(s): I10 - Essential (primary) hypertension (3) Non-ST elevated myocardial infarction (non-STEMI): Status: Acute (4) Cigarette smoker: Status: Acute Additional A&P Information Nonischemic cardiomyopathy EF 35% Status post cardiac cath 06/26 via right radial Takotsubo cardiomyopathy Patient experiencing recurrent episode of emesis She will need 1 more day in the hospital for optimization of her medication for CHF Clinically does not look fluid overloaded, BNP 7500 We will repeat chest x-ray if her respiratory status declines or requires oxygen Currently on low-dose of lisinopril along metoprolol Repeat EKG today Counseled on smoking cessation Cardiac diet Full code DVT prophylaxis Lovenox Attestations Medical Necessity Statement*: Need 1 more day for optimization of CHF medication Time Spent in Patient Care: less than 15 minutes Coding Level of Care Code Acute Software Application Tester for Chg Fwd Diagnoses Takotsubo cardiomyopathy I51.81 HTN (hypertension) I10 Hypertension type: essential hypertension Non-ST elevated myocardial infarction (non-STEMI) I21.4 Cigarette smoker F17.210
--- NOTE | 2021-06-27 10:49 | PC.RESP ---
Smoking Cessation information sent to patient.
[2021-06-27] MEDS: ondansetron 2 mg/ML SDV 2 mL 4 MG IVP (11:04)
--- NOTE | 2021-06-27 11:55 | PC.CHAP ---
Pastoral Care Encounter/Spiritual Assessment Type of Contact [] Declined transcript evaluator visit [] Patient/Family/Request visit [] Outpatient visit [] Follow-up visit [] Physician referral [] Code/Alert [] Routine visit [] Staff referral [] Actively dying [] Patient sleeping [] Family support [] [] Out of room [] Palliative care [] [xx] Receiving care in room [] Pre-surgical visit [] Trauma [] Long length of stay [] ICU visit [] Other: Relational/Emotional Strength [] Patient feels connected with others/family/visitors/staff [] Distress [] Loneliness/isolation [] Abandonment Spirituality of Patient [] Person of Juliana [] Attends Mormon of their Juliana [] Believes in Prayer [] Reads Bible or Voodoo materials [] There are Spiritual issues to be addressed Meat Counter Clerk Interventions [] Prayer [] Active listening [] Non-anxious presence [] Spiritual/emotional support [] Crisis/trauma care [] Spiritual counseling [] Bereavement support [] Provided bereavement packet [] Provided Bible/devotional materials [] Provided toy/stuffed animal, coloring book to patient or family member [] Provided Communion [] Anointing/[place] [] Salvation [] Completed spiritual assessment [] Other: Impact on Illness or Injury [] Angry [] Fearful [] Anxious [] Often cries [] Exhaustion [] Unable to work [] Unable to attend hoahaoism [] Unable to walk/stand [] Unable to read [] Unable to drive [] Unable to eat/drink [] Unable to sleep [] Unable to be with family [] Patient intubated [] Other: Summary Follow up needed Time spent with patient
[2021-06-27] MEDS: FUROsemide 20 mg Tablet PO (13:41)
[2021-06-27] MEDS: enoxaparin 40 mg/0.4 mL Syringe SUBCUT (13:41)
--- NOTE | 2021-06-27 16:47 | PM.DCS ---
Discharge Providers Date of Admission: 06/26/21 17:26 Date of Discharge: June 27, 2021 Attending Provider at Admission: Jw Funk MD Attending Provider at Discharge: Ailyn Andre MD Diagnoses at Discharge Discharge Diagnosis (1) Takotsubo cardiomyopathy: Status: Acute (2) HTN (hypertension): Status: Acute Qualifiers: Hypertension type: essential hypertension Qualified Code(s): I10 - Essential (primary) hypertension (3) Non-ST elevated myocardial infarction (non-STEMI): Status: Acute (4) Cigarette smoker: Status: Acute Reason for Visit Reason for Visit: CP Hospital Course Hospital Course Patient was admitted for management of chest pain she was diagnosed with non-ST segment elevation [place] at the time of admission, underwent coronary angiogram via right radial artery, nonobstructive coronary to disease, she was diagnosed with Takotsubo cardiomyopathy with EF of 35%. After the procedure she experienced 2 episode of emesis and was complaining of pleuritic chest pain. Her symptoms resolved with Zofran and Lasix was given for possible intravascular congestion however clinically she looks euvolemic her BNP was high chest x-ray without any signs of edema. Her symptoms were thought secondary to iodine that she received during procedure versus pericarditis. She was evaluated by Dr. Andre on the day of discharge and later on by Dr. Duong who recommended discharging her on 06/27. I have sent a prescription of aspirin, atorvastatin, lisinopril low-dose because of hypotension and Lasix for as needed usage. Dr Cordon has asked me to discharge her and he will send rest of the prescriptions. Physical Exam Narrative: EXAM NARRATIVE: elderly female was sitting at the bedside Was complaining of sickness to her stomach Saturating well on room air Blood pressure soft Clinically does not look fluid overloaded Reproducible chest pain No audible stridor or wheezing EOMI, PERRLA No strokelike symptom Discharge Data Data Completed and Pending: Completed Studies During Hospitalization Category Date Time Status XR chest 1V tony ble [id number] Stat Exams 06/26/21 10:37 Completed CV. 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 Urgent Exams 06/26/21 15:13 Taken Complete Blood Co unt w/Auto AM LABS Lab 06/28/21 04:00 Ordered Labs from last 24 hours 06/27/21 06/27/21 06/26/21 02:00 02:00 19:08 WBC 12.7 H RBC 3.82 L Hgb 10.4 L Hct 32.8 L MCV 85.9 MCH 27.2 L MCHC 31.7 RDW 16.0 H Plt Count 225 MPV 11.7 H Neut % (Auto) 78.5 Lymph % (Auto) 12.2 [place] % (Auto) 8.7 Eos % (Auto) 0.0 Baso % (Auto) 0.2 Neut # (Auto) 9.95 H Lymph # (Auto) 1.6 [place] # (Auto) 1.1 H Eos # (Auto) 0.0 Baso # (Auto) 0.0 Nucleated RBC % (a uto) 0 Nucleated RBCs # 0.0 D-Dimer 0.50 Sodium 128 L Potassium 4.5 Chloride 97 L Carbon Dioxide 24 Anion Gap 11.5 BUN 8 Creatinine 0.6 GFR Calculation Not Reportable Glucose 116 H Calculated Osmolal ity 265 L Calcium 7.6 L Vitals: Last Vital Signs Temp 98.5 F 06/27/21 15:29 Pulse 78 06/27/21 15:29 Resp 16 06/27/21 15:29 BP 107/74 06/27/21 15:29 Pulse Ox 92 06/27/21 15:29 Discharge Plan Discharge Patient Disposition: Home Condition: Stable Prescriptions: New atorvastatin 40 mg tablet 40 mg PO DAILY Qty: 30 RF: 0 Lasix 20 mg tablet 10 mg PO DAILY PRN (Reason: weight gain) 10 Days Qty: 10 RF: 0 Continued PreserVision AREDS-2 250-90-40-1 mg Capsule 2 cap PO BEDTIME RF: 0 aspirin 81 mg Tablet,Delayed Release (Dr/Ec) 81 mg PO BEDTIME 30 Days Qty: 30 RF: 0 Changed lisinopril 10 mg tablet 5 mg PO QAM 30 Days Qty: 30 RF: 0 Discontinued atorvastatin 10 mg tablet 10 mg PO QAM RF: 0 Discharge Orders: Discharge Order (Routine); Ordered 06/27/21 Ordered By: Jw Funk Referrals: Kathrin Nguyen FNP [Nurse Practitioner] - 1 week (You have an appointment with Kathrin LOPEZ on July 03 at 0900.) Ailyn Andre MD [Physician] - 1 month (You have an appointment with Dr. Andre on July 18 at 1000 am.) Discharge Diet: Cardiac Discharge Activity: Resume usual activity Patient Instructions: Left Heart Catheterization (DC), Opioid Safety Discharge Attestations Time Spent in Discharge Care*: less than 30 min Quality Metrics Clinical Quality Measures During this hospital stay, did patient experience: AMI Clinical Trial Participant: No Contraindication to aspirin (AMI): Aspirin given Contraindication to statin: Statin prescribed Contraindication to PCI: PCI performed Contraindication to Fibrinolytics: Medical contraindication and None Coding Level of Care Code Acute g FW DC note Diagnoses Takotsubo cardiomyopathy I51.81 HTN (hypertension) I10 Hypertension type: essential hypertension Non-ST elevated myocardial infarction (non-STEMI) I21.4 Cigarette smoker F17.210
--- NOTE | 2021-06-27 17:32 | P.PN_ITS ---
Subjective Subjective: Interval history: Denies chest pain feeling better she has bouts of nausea and chest pain last night. But today she is feeling much better now. Medications: Reviewed: Yes Medication Review Details: Current Medications Acetaminophen (Acetaminophen 500 Mg Tablet) 500 mg PO Q4H PRN PRN Reason: fever Al Hydrox/Mg Hydrox/Simethicone (Eobg-Bsz-Awgspmgeg-Doe 30 Ml Udc) 30 ml PO Q15M PRN PRN Reason: INDIGESTION Albuterol/Ipratropium (Ipratropium-Albuterol 3 Ml Neb) 3 ml INHALATION Q6H PRN PRN Reason: SHORTNESS OF BREATH Last Admin: 06/26/21 22:14 Dose: 3 ml Documented by: Aspirin (Aspirin 81 Mg Ec Tablet) 81 mg PO BEDTIME [facility] Last Admin: 06/26/21 21:05 Dose: 81 mg Documented by: Atorvastatin Calcium (Atorvastatin 40 Mg Tablet) 80 mg PO QAM [facility] Last Admin: 06/27/21 05:40 Dose: 80 mg Documented by: Atropine Sulfate (Atropine 1 Mg/Ml Sdv 1 Ml) 0.5 mg IVP PRN PRN PRN Reason: Symptomatic bradycardia Clopidogrel Bisulfate (Clopidogrel 75 Mg Tablet) 75 mg PO DAILY [facility] Last Admin: 06/27/21 10:12 Dose: 75 mg Documented by: Enoxaparin Sodium (Enoxaparin 60 Mg/0.6 Ml Syringe) 60 mg SUBCUT Q12H [facility] Last Admin: 06/27/21 10:13 Dose: Not Given Documented by: Fentanyl (Fentanyl 50 Mcg/Ml Inj 2ml) 50 mcg IVP PRN PRN PRN Reason: Prior to sheath removal Fentanyl (Fentanyl 50 Mcg/Ml Inj 2ml) 25 mcg IVP Q6H PRN PRN Reason: SEVERE PAIN Last Admin: 06/26/21 18:45 Dose: 25 mcg Documented by: Sodium Chloride (Sodium Chloride 0.9%) 1,000 mls @ 50 mls/hr IV .Q20H ONE Stop: 06/27/21 11:12 Last Admin: 06/26/21 21:58 Dose: Not Given Documented by: Lisinopril (Lisinopril 10 Mg Tablet) 10 mg PO QAM [facility] Last Admin: 06/27/21 05:40 Dose: 10 mg Documented by: Lorazepam (Lorazepam 2 Mg/Ml Inj 1 Ml) 0.5 mg IVP Q12H PRN PRN Reason: ANXIETY Last Admin: 06/26/21 21:05 Dose: 0.5 mg Documented by: Magnesium Hydroxide (Magnesium Hydroxide 30 Ml Udc) 30 ml PO DAILY PRN PRN Reason: CONSTIPATION Metoprolol Succinate (Metoprolol Succinate Er (24 Hr) 25 Mg Tablet) 12.5 mg PO DAILY [facility] Last Admin: 06/27/21 10:12 Dose: 12.5 mg Documented by: Morphine Sulfate (Morphine 4 Mg/Ml Sdv 1 Ml) 2 mg IVP Q4H PRN PRN Reason: SEVERE PAIN Naloxone HCl (Naloxone 0.4 Mg/Ml Sdv) 0.1 mg IVP Q2M PRN PRN Reason: RESPIRATORY RATE < 8/MIN Nitroglycerin (Nitroglycerin 0.4 Mg Sublingual Tablet) 0.4 mg SUBLINGUAL Q5M PRN PRN Reason: CHEST PAIN Nitroglycerin (Nitroglycerin 1 Gm/Inch Oint Pkt) 0.5 inch TOPICAL Q6H [facility] Last Admin: 06/26/21 18:45 Dose: Not Given Documented by: Vitals/I&O/Wt Last Vital Signs Temp 98.5 F 06/27/21 16:52 Pulse 78 06/27/21 16:52 Resp 16 06/27/21 16:52 BP 107/74 06/27/21 16:52 Pulse Ox 92 06/27/21 16:52 06/27/21 06/27/21 06/27/21 06:59 14:59 22:59 Intake Total 180 / 180 220 / 400 Balance 180 / 180 220 / 400 Weight last 48 hrs Weight 120 lb Physical Exam Narrative: EXAM NARRATIVE: GENERAL: Patient is alert, awake and oriented x3. NECK: No jugular vein distension. HEENT: No cyanosis. No icterus. No pallor. HEART: Regular S1 and S2. No murmur, rub or gallop. LUNGS: Clear to auscultate bilaterally. ABDOMEN: Soft, nontender and nondistended. Positive bowel sounds. No guarding, rebound or tenderness. CENTRAL NERVOUS SYSTEM: Grossly nonfocal. EXTREMITIES: Lower extremities without edema bilaterally. Const: COMMON NORMALS: alert Resp: COMMON NORMALS: clear to auscultation bilaterally AUSCULTATION: clear to auscultation bilaterally Neuro: SENSORIUM/ORIENTATION: Yes alert Data : 06/27/21 02:00 06/27/21 02:00 A&P Assessment and plan (1) Non-ST elevated myocardial infarction (non-STEMI): LVEF=35% with mid to apical wall motion abnormalities in multivessel territory. Diffrentials being multivessel CAD vs takotsubo cardiomyopathy -BP soft and ongoing chest pain. -continue ASA and plavix for now. continue statin. Stress-induced cardiomyopathy leading to non-ST elevation [place]. Continue aspirin statin Plavix. Continue beta-jo ARB Status: Acute (2) Takotsubo cardiomyopathy: Patient will be placed on 20 mg of Lasix along with 10 mg of potassium. Advised to keep log of blood pressure pulse daily weight. If gain more than 3 pound in 2 conjunctive days take extra Lasix. Follow-up with cardiology Status: Acute (3) HTN (hypertension): Well-controlled continue medicine Status: Acute Qualifiers: Hypertension type: essential hypertension Qualified Code(s): I10 - Essential (primary) hypertension (4) Cigarette smoker: Advised quitting smoking. Status: Acute Additional A&P Information Leucocytosis Abnormal liver enzymes Hyponatremia Thank you for allowing me to participate in patient's care. Please feel free to call with questions or concerns. Attestations Medical Necessity Statement*: Patient can be discharged home follow-up with cardiology as an output Coding Level of Care Code Established Pt Acute [facility] Hearing [facility] Director for Dori Enriquez Patient Type Established History Detailed Exam Detailed Medical Decision Making Moderate Complexity Diagnoses Non-ST elevated myocardial infarction (non-STEMI) I21.4 Takotsubo cardiomyopathy I51.81 HTN (hypertension) I10 Hypertension type: essential hypertension Cigarette smoker F17.210
== END 2021-06-27 17:10 | disposition home or self-care (01) | DRG 281 ==
LOC: ER 15:56 → CCL 16:14 → CSU 17:37
PROVIDERS: Emergency Medicine; Internal Medicine Cardiovascular Disease; Admitting Provider Internal Medicine; Emergency Provider Physician Assistant; Visit Provider Internal Medicine Cardiovascular Disease
PROC: 4A023N7 Measurement of Cardiac Sampling and Pressure, Left Heart, Percutaneous Approach (ICD-10-PCS; principal; 2021-06-26 16:30)
DX: I21.4 Non-ST elevation (NSTEMI) myocardial infarction (principal); I51.81 Takotsubo syndrome; E87.1 Hypo-osmolality and hyponatremia; I10 Essential (primary) hypertension; F17.210 Nicotine dependence, cigarettes, uncomplicated; I25.110 Atherosclerotic heart disease of native coronary artery with unstable angina pectoris; Z82.49 Family history of ischemic heart disease and other diseases of the circulatory system; Z79.82 Long term (current) use of aspirin
CPT/HCPCS: 36415; 71045; 80048; 80053; 81003; 83880; 84484; 85025; 85378; 85610; 85730; 87426; 93005; 93306; 93452; 94640; 96361; 96372; 96374; 96375; 99285; C1769; C1887; C1894; J1650; J1885; J2060; J2250; J2270; J2405; J3010; J3490; J7040; Q9967

== ENCOUNTER 2021-07-01 06:24 | Emergency (ER) | payer MEDICARE, SELFPAY ==
[2021-07-01] VITALS (8 sets, daily range): BP systolic 108–127; BP diastolic 71–96; PULSE 70–96; RESP 15–18; TEMP 36.6; O2SAT 95–98; BMI 22.4
--- NOTE | 2021-07-01 06:40 | XR_ITS ---
WS: [id number] Portable AP upright chest, 07/01/2021 Clinical Data: dyspnea/cough Comparison: Portable chest, 06/26/2021 Findings: There are bilateral pleural effusions with more the right than the left. The pulmonary vasc ularity has increased. The heart is enlarged. Monitor leads are on the arms. XR/XR chest 1V portable [id number] Impression: Cardiomegaly with pulmonary vascular prominence and bilateral effusions consist ent with congestive heart failure.
--- NOTE | 2021-07-01 06:42 | ECG_ITS ---
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1940 Requested By: Suman Mejia Order Number: [id number] Reading MD: MESSI DAY Measurements Intervals [place] Rate: 72 P: 36 [place]: 149 QRS: 22 QRSD: 98 T: 176 QT: 441 QTc: 486 Interpretive Statements SINUS RHYTHM INCOMPLETE RIGHT BUNDLE BRANCH BLOCK [90+ ms QRS DURATION, TERMINAL R IN V1/V2, 40+ ms S IN I/aVL/V4/V5/V6] MODERATE T-WAVE ABNORMALITY, CONSIDER LATERAL ISCHEMIA [-0.1+ mV T WAVE IN I/aVL/V5/V6] Compared to ECG 06/26/2021 14:20:37 Incomplete right bundle-branch block now present Ventricular premature complex(es) no longer present T-wave abnormality still present Possible ischemia still present Electronically Signed On 07-01-2021 22:32:35 CDT by MESSI DAY [email or web address]
--- NOTE | 2021-07-01 06:43 | W.ED.SOB ---
HPI - SOB/Dyspnea General: Chief Complaint: Shortness of Breath/Dyspnea Stated Complaint: sob Time Seen by Provider: 07/01/21 06:30 History of Present Illness: HPI Narrative: 72-year-old female presents emergency room with complaint of shortness of breath.5 days ago she was admitted for NSTEMI at angiogram and was discharged home with a diagnosis of Takotsubo syndrome. She is having increased shortness of breath now. She denies any chest pain she is not having any orthopnea. Patient came in via EMS on arrival here she is 97% on room air. She is 95 to 97% on room air here there is no tachypnea. She not notice any swelling in her legs. MD elicited complaint: shortness of breath Onset (ago): hour(s) Timing: constant Severity: moderate Exacerbating factors: nothing Relieving factors: nothing Known history of: other (Coronary artery disease) Associated symptoms: Deny abdominal pain, chest congestion, chest pain, cough, diaphoresis, dizziness, extremity pain, fever(s), hemoptysis, lightheadedness, myalgias, nausea, orthopnea, palpitations, paresthesias, polydipsia, polyuria, rash, sense of impending doom, syncope or vomiting Treatment prior to arrival: none Review of Systems Const: Denies: fever(s) or diaphoresis ENMT: Denies: throat pain, ear or mastoid pain, nasal discharge or nasal congestion Card: Denies: chest pain, palpitations, lightheadedness, syncope or orthopnea Resp: Denies: hemoptysis or chest congestion GI: Denies: abdominal pain, nausea or vomiting : Denies: flank pain, difficulty voiding, dysuria, urinary frequency or urinary urgency Musc: Denies: extremity pain Skin/Breast: Denies: rash or pruritus Neuro: Denies: dizziness Endo: Denies: polyuria or polydipsia PFSH ED PFSH: Medical History Cigarette smoker Elevated troponin Family history of ischemic heart disease and other diseases of the circulatory system HTN (hypertension) Non-ST elevated myocardial infarction (non-STEMI) Surgical History No history of previous surgery Family History Brother CAD (coronary artery disease) In his 60s Social History Smoking and tobacco status: current every day smoker cigarettes Packs smoked per day: 1 Years cigarettes smoked: 40 Physical Exam Const: COMMON NORMALS: no acute distress GENERAL APPEARANCE: cooperative and comfortable ORIENTATION/CONSCIOUSNESS: Yes awake, Yes oriented to person, Yes oriented to place and Yes oriented to time HENMT: COMMON NORMALS: normocephalic, atraumatic, hearing grossly normal bilaterally and external ears normal HEAD & SCALP: normocephalic and atraumatic EXTERNAL EAR: Yes external ears normal Neck/C-Spine: COMMON NORMALS: no JVD Resp: COMMON NORMALS: normal respiratory effort, No retractions, No use of accessory muscles and clear to auscultation bilaterally AUSCULTATION: clear to auscultation bilaterally Cardio: COMMON NORMALS: no JVD, regular rate, regular rhythm and No murmurs present (Cardio) RATE: regular rate RHYTHM: regular rhythm GI: COMMON NORMALS: Soft to palpation and No hepatosplenomegaly present AUSCULTATION: Yes normoactive bowel sounds PALPATION: Yes Soft to palpation, No Tenderness to palpation present (GI), No Guarding due to palpation present (GI) and Yes No hepatosplenomegaly present Extremity: COMMON NORMALS: normal to inspection, capillary refill normal, no clubbing, cyanosis or edema, no calf tenderness and no pedal edema Neuro: SENSORIUM/ORIENTATION: Yes oriented to person, Yes oriented to place and Yes oriented to time Skin: COMMON NORMALS: no rashes or lesions noted GENERAL SKIN EXAM: no rashes or lesions noted Course Vital Signs: Vital signs: Vital Signs Temperature 97.8 F 07/01/21 06:25 Pulse Rate 72 07/01/21 12:17 Respiratory Rate 15 07/01/21 11:00 Blood Pressure 111/78 07/01/21 12:17 Pulse Oximetry 97 07/01/21 12:17 MDM - SOB/Dyspnea MDM Narrative: Medical decision making narrative: Patient given 60 mg IV Lasix in the department. We will increase her p.o. Lasix to 40 mg daily. Reviewed lab findings with her troponin remains elevated from her previous event but her delta is negative. She does have mild CHF on her chest x-ray. We will increase her Lasix however follow-up with cardiology later this week return if she has trouble. Lab Data: Attestation: I reviewed the patient's lab results. Labs: Lab Results 07/01/21 07/01/21 07/01/21 Range/Units 06:12 06:12 06:12 WBC 9.4 (4.0-10.0) 10^3/ uL RBC 4.08 L (4.1-5.3) 10^6/u L Hgb 11.1 L (11.5-15.3) g/dL Hct 35.1 L (37.0-47.0) % MCV 86.0 (81-99) fL MCH 27.2 L (28.0-34.0) pg MCHC 31.6 (30.0-36.0) g/dL RDW 16.0 H (12.1-15.1) % Plt Count 321 (130-400) 10^3/c mm MPV 12.1 H (7.4-10.4) fL Neut % (Auto) 67.2 % Lymph % (Auto) 24.9 % [place] % (Auto) 6.7 % Eos % (Auto) 0.7 % Baso % (Auto) 0.3 % Neut # (Auto) 6.32 (1.8-7.7) 10^3/u L Lymph # (Auto) 2.3 (0.8-4.8) 10^3/u L [place] # (Auto) 0.6 (0.2-0.9) 10^3/u L Eos # (Auto) 0.1 (0.0-0.8) 10^3/u L Baso # (Auto) 0.0 (0.0-0.1) 10^3/u L Nucleated RBC % (a uto) 0 % Nucleated RBCs # 0.0 /100WBC Sodium 134 L (136-145) mmol/L Potassium 5.0 (3.5-5.1) mmol/L Chloride 99 (98-107) mmol/L Carbon Dioxide 22 (22-29) mmol/L Anion Gap 18.0 (5-19) BUN 9 (8-23) mg/dL Creatinine 0.6 (0.5-0.9) mg/dL GFR Calculation Not Reportable Glucose 106 (65-115) mg/dL Calculated Osmolal ity 277 L (285-295) mOsm/k g Calcium 8.4 L (8.5-10.5) mg/dL Total Bilirubin 0.4 (0.15-1.2) mg/dL AST 38 H (0-32) U/L ALT 45 H (0-33) U/L Alkaline Phosphata se 172 H (35-105) IU/L Creatine Kinase 71 (26-192) U/L Troponin T Baselin e 60 H (0-10) ng/L Troponin T 120 [place] (0-10) ng/L Delta Troponin T (0-10) ABS# NT-Pro-B Natriuret Pep 8476 H (0-450) pg/mL Total Protein 6.1 L (6.6-8.7) g/dL Albumin 3.3 L (3.5-5.2) g/dL Globulin 2.8 (1.3-4.6) g/dL Lipase 50 (13-60) U/L 07/01/21 Range/Units 09:55 WBC (4.0-10.0) 10^3/ uL RBC (4.1-5.3) 10^6/u L Hgb (11.5-15.3) g/dL Hct (37.0-47.0) % MCV (81-99) fL MCH (28.0-34.0) pg MCHC (30.0-36.0) g/dL RDW (12.1-15.1) % Plt Count (130-400) 10^3/c mm MPV (7.4-10.4) fL Neut % (Auto) % Lymph % (Auto) % [place] % (Auto) % Eos % (Auto) % Baso % (Auto) % Neut # (Auto) (1.8-7.7) 10^3/u L Lymph # (Auto) (0.8-4.8) 10^3/u L [place] # (Auto) (0.2-0.9) 10^3/u L Eos # (Auto) (0.0-0.8) 10^3/u L Baso # (Auto) (0.0-0.1) 10^3/u L Nucleated RBC % (a uto) % Nucleated RBCs # /100WBC Sodium (136-145) mmol/L Potassium (3.5-5.1) mmol/L Chloride (98-107) mmol/L Carbon Dioxide (22-29) mmol/L Anion Gap (5-19) BUN (8-23) mg/dL Creatinine (0.5-0.9) mg/dL GFR Calculation Glucose (65-115) mg/dL Calculated Osmolal ity (285-295) mOsm/k g Calcium (8.5-10.5) mg/dL Total Bilirubin (0.15-1.2) mg/dL AST (0-32) U/L ALT (0-33) U/L Alkaline Phosphata se (35-105) IU/L Creatine Kinase (26-192) U/L Troponin T Baselin e (0-10) ng/L Troponin T 120 [place] 52.49 H (0-10) ng/L Delta Troponin T -7.51 L (0-10) ABS# NT-Pro-B Natriuret Pep (0-450) pg/mL Total Protein (6.6-8.7) g/dL Albumin (3.5-5.2) g/dL Globulin (1.3-4.6) g/dL Lipase (13-60) U/L Discharge Plan Discharge Patient Disposition: Home Clinical Impression: Congestive heart failure Condition: Stable Prescriptions: New Lasix 40 mg tablet 20 mg PO QAM Qty: 14 RF: 0 Discontinued furosemide [Lasix] 20 mg tablet 10 mg PO DAILY PRN (Reason: weight gain) 10 Days Qty: 10 RF: 0 No Action atorvastatin 40 mg tablet 40 mg PO QAM RF: 0 metoprolol succinate 25 mg tablet extended release 24 hr 12.5 mg PO QAM RF: 0 PreserVision AREDS-2 250-90-40-1 mg Capsule 2 cap PO BEDTIME RF: 0 aspirin 81 mg Tablet,Delayed Release (Dr/Ec) 81 mg PO BEDTIME 30 Days Qty: 30 RF: 0 lisinopril 10 mg tablet 5 mg PO QAM 30 Days Qty: 30 RF: 0 Discharge Orders: Discharge ED (Routine); Ordered 07/01/21 Ordered By: Suman Franz Discharge Diet: Cardiac Discharge Activity: Limit activity as instructed Patient Instructions: Opioid Safety Coding Level of Care Code ED Software Tools Developer for Dori Enriquez
[2021-07-01 07:06] LABS: Basophils % 0.3 %; Eosinophils # 0.1 10^3/uL (0.0-0.8); Eosinophils % 0.7 %; Hematocrit 35.1 % (37.0-47.0); Hemoglobin 11.1 g/dL (11.5-15.3); Lymphocytes # 2.3 10^3/uL (0.8-4.8); Lymphocytes % 24.9 %; Mean Corpuscular HGB Conc 31.6 g/dL (30.0-36.0); Mean Corpuscular Hemoglobin 27.2 pg (28.0-34.0); Mean Platelet Volume 12.1 fL (7.4-10.4); Monocytes # 0.6 10^3/uL (0.2-0.9); Monocytes % 6.7 %; Neutrophils # 6.32 10^3/uL (1.8-7.7); Neutrophils % 67.2 %; Nucleated Red Blood Cells % 0 %; Platelet Count 321 10^3/cmm (130-400); Red Blood Count 4.08 10^6/uL (4.1-5.3); White Blood Count 9.4 10^3/uL (4.0-10.0)
[2021-07-01 07:20] LABS: Troponin(5th) Baseline 60 ng/L (0-10)
[2021-07-01 07:28] LABS: Alanine Aminotransferase 45 U/L (0-33); Albumin Level 3.3 g/dL (3.5-5.2); Alkaline Phosphatase 172 IU/L (35-105); Blood Urea Nitrogen 9 mg/dL (8-23); Calcium 8.4 mg/dL (8.5-10.5); Carbon Dioxide 22 mmol/L (22-29); Chloride 99 mmol/L (98-107); Creatine Phosphokinase 71 U/L (26-192); Creatinine Clr Calc Pharmacy 45.9943; Globulin 2.8 g/dL (1.3-4.6); Glucose 106 mg/dL (65-115); Lipase 50 U/L (13-60); NT Pro B Type Natriuretic Pept 8476 pg/mL (0-450); Osmolality Calculated 277 mOsm/kg (285-295); Sodium 134 mmol/L (136-145); Total Bilirubin 0.4 mg/dL (0.15-1.2); Total Protein 6.1 g/dL (6.6-8.7)
[2021-07-01 07:32] LABS: Aspartate Amino Transferase 38 U/L (0-32)
[2021-07-01] MEDS: FUROsemide 10 mg/mL SDV 10mL 60 MG IVP (07:55)
--- NOTE | 2021-07-01 08:42 | ECG_ITS ---
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1940 Requested By: Suman Mejia Order Number: [id number] Reading MD: MESSI DAY Measurements Intervals [place] Rate: 71 P: 28 [place]: 148 QRS: -2 QRSD: 97 T: 168 QT: 446 QTc: 486 Interpretive Statements SINUS RHYTHM INCOMPLETE RIGHT BUNDLE BRANCH BLOCK [90+ ms QRS DURATION, TERMINAL R IN V1/V2, 40+ ms S IN I/aVL/V4/V5/V6] MODERATE T-WAVE ABNORMALITY, CONSIDER LATERAL ISCHEMIA [-0.1+ mV T WAVE IN I/aVL/V5/V6] Compared to ECG 07/01/2021 06:28:41 No significant changes Electronically Signed On 07-01-2021 22:37:32 CDT by MESSI DAY [id number]
[2021-07-01 10:46] LABS: Troponin 5 2HR 52.49 ng/L (0-10)
[2021-07-01 11:03] LABS: Troponin 5 2HR Delta -7.51 ABS# (0-10)
--- NOTE | 2021-07-01 12:42 | ECG_ITS ---
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: : 1940 Requested By: Suman Mejia Order Number: [id number] Reading MD: MESSI DAY Measurements Intervals [place] Rate: 71 P: 23 [place]: 152 QRS: -2 QRSD: 96 T: 169 QT: 452 QTc: 491 Interpretive Statements SINUS RHYTHM INCOMPLETE RIGHT BUNDLE BRANCH BLOCK [90+ ms QRS DURATION, TERMINAL R IN V1/V2, 40+ ms S IN I/aVL/V4/V5/V6] MODERATE T-WAVE ABNORMALITY, CONSIDER LATERAL ISCHEMIA [-0.1+ mV T WAVE IN I/aVL/V5/V6] Compared to ECG 07/01/2021 08:50:20 No significant changes Electronically Signed On 07-01-2021 22:37:30 CDT by MESSI DAY [id number]
== END 2021-07-01 12:20 | disposition home or self-care (01) ==
PROVIDERS: Emergency Provider Family Medicine
DX: I11.0 Hypertensive heart disease with heart failure (principal); I50.9 Heart failure, unspecified; Z79.82 Long term (current) use of aspirin; I25.2 Old myocardial infarction; F17.210 Nicotine dependence, cigarettes, uncomplicated
CPT/HCPCS: 71045; 80053; 82550; 83690; 83880; 84484; 85025; 93005; 96374; 99284; J1940

== ENCOUNTER → 2021-07-18 11:00 | Outpatient (BNVA) | payer MEDICARE, SELFPAY | PROVIDERS: Visit Provider Internal Medicine Cardiovascular Disease | DX: I51.81 Takotsubo syndrome (principal); I25.10 Atherosclerotic heart disease of native coronary artery without angina pectoris; I10 Essential (primary) hypertension | CPT/HCPCS: 80053; 83735; 83880 ==

== ENCOUNTER → 2021-08-06 10:25 | Outpatient (BNVA) | payer MEDICARE, SELFPAY | PROVIDERS: Visit Provider Internal Medicine Cardiovascular Disease | DX: I50.42 Chronic combined systolic (congestive) and diastolic (congestive) heart failure (principal); I10 Essential (primary) hypertension; I25.10 Atherosclerotic heart disease of native coronary artery without angina pectoris | CPT/HCPCS: 80048; 83735; 83880 ==

== ENCOUNTER → 2021-08-29 11:35 | Outpatient (BNVA) | payer MEDICARE, SELFPAY | PROVIDERS: Visit Provider Internal Medicine Cardiovascular Disease | DX: I51.81 Takotsubo syndrome (principal); I25.10 Atherosclerotic heart disease of native coronary artery without angina pectoris; I50.9 Heart failure, unspecified; I50.42 Chronic combined systolic (congestive) and diastolic (congestive) heart failure; I10 Essential (primary) hypertension; F17.210 Nicotine dependence, cigarettes, uncomplicated; Z82.49 Family history of ischemic heart disease and other diseases of the circulatory system | CPT/HCPCS: 80048; 83735; 83880 ==

== ENCOUNTER 2021-11-27 07:26 | Outpatient (CLI) | payer MEDICARE, SELFPAY ==
--- NOTE | 2021-11-27 08:00 | USCV_ITS ---
Nidia Jin Age: 81 Gender: F : 1940 Exam Date: 11/27/2021 07:58 Ordering Phys: Ailyn Andre MD ([email or web address]) Technologist: BRET [place]am [place] [facility] [place]: ASSESS LV FUNCTION BP: 110 / 80 HR: 56 Rhythm: Sinus Technical Quality: Adequate MEASUREMENTS (Male / Female) Normal Values 2D ECHO LV Diastolic Diameter PLAX 3.2 cm 4.2 - 5.9 / 3.9 - 5.3 cm LV Systolic Diameter PLAX 2.5 cm IVS Diastolic Thickness 1.2 cm 0.6 - 1.0 / 0.6 - 0.9 cm IVS Systolic Thickness 1.3 cm LVPW Diastolic Thickness 1.5 cm 0.6 - 1.0 / 0.6 - 0.9 cm LVPW Systolic Thickness 1.6 cm RV Chamber Size 3.3 cm LVOT Diameter 2.0 cm LV Ejection Fraction 2D Teich 45.8 % LV Ejection Fraction MOD 2C 56.1 % LV Ejection Fraction 2C AL 52.3 % LA Diameter 3.2 cm LA Width 3.4 cm LA Height 3.9 cm RA Width 4.3 cm RA Height 4.5 cm Aorta at Sinotubular Diameter 2.3 cm M-MODE Aortic Annulus Diameter 3.0 cm LA Ao Ratio MM 1.1 MV E Point Septal Separation 0.7 cm DOPPLER TV Peak E Velocity 33.0 cm/s PV Peak Velocity 85.0 cm/s RV Acceleration Time 0.1 s RV Ejection Time 0.3 s RV AcT/ET 0.3 FINDINGS Left Ventricle Normal left ventricular size, systolic function and wall thickness, with no regional wall motion abnormalities. Left ventricular ejection fraction is estimated at 65 %. Right Ventricle Normal right ventricular size and systolic function. Right Atrium Mildly increased right atrial size. Aneurysmal interatrial septum. Left Atrium Mildly inreased left atrial size. Mitral Valve Mildly thickened mitral valve. Aortic Valve Aortic valve not well visualized. Tricuspid Valve Structurally normal tricuspid valve. Pulmonic Valve Pulmonic valve not well visualized. Pericardium No pericardial effusion. Aorta Normal sized aortic root. CONCLUSIONS 1. This is a limited 2 D echo only. 2. Normal left ventricular size, systolic function and wall thickness, with no regional wall motion abnormalities. Left ventricular ejection fraction is estimated at 65 %. 3. Mild biatrial enlargement. 4. When compared to previous echocardiogram dated 06/26/21, left ventricular systolic function has improved from 35% to 65% now. Ailyn Andre MD (Electronically Signed) Final Date: 29 November 2021 17:34 S
== END 2021-11-27 07:27 | disposition home or self-care (01) ==
PROVIDERS: PCP Clinical Nurse Specialist Adult Health; Visit Provider Internal Medicine Cardiovascular Disease
DX: I50.42 Chronic combined systolic (congestive) and diastolic (congestive) heart failure (principal); I51.81 Takotsubo syndrome
CPT/HCPCS: 93308

== ENCOUNTER → 2022-04-29 12:56 | Outpatient (BNVA) | payer MEDICARE, SELFPAY | PROVIDERS: PCP Clinical Nurse Specialist Adult Health; Visit Provider Internal Medicine Cardiovascular Disease | DX: I11.0 Hypertensive heart disease with heart failure (principal); I50.42 Chronic combined systolic (congestive) and diastolic (congestive) heart failure; F17.210 Nicotine dependence, cigarettes, uncomplicated | CPT/HCPCS: 99213; 99214 ==

== ENCOUNTER → 2023-05-03 10:10 | Outpatient (BNVA) | payer MEDICARE, SELFPAY | PROVIDERS: PCP Clinical Nurse Specialist Adult Health; Visit Provider Internal Medicine Cardiovascular Disease | DX: I11.0 Hypertensive heart disease with heart failure (principal); I50.42 Chronic combined systolic (congestive) and diastolic (congestive) heart failure; I25.10 Atherosclerotic heart disease of native coronary artery without angina pectoris; F17.210 Nicotine dependence, cigarettes, uncomplicated; Z82.49 Family history of ischemic heart disease and other diseases of the circulatory system | CPT/HCPCS: 99214 ==